=== PATIENT | male | born 1950 | race Caucasian/White ===

== ENCOUNTER → 2018-04-24 | Outpatient (CLI) | payer OTHER ==
--- NOTE | 2018-04-27 17:25 | SLE ---
[facility] [place] [address] POLYSOMNOGRAPHY STUDY Name: GABY MAK Room #: REG [facility]#: [id number] Admission: 04/24/18 ������������������ Attend Phys: Gildardo Michelle MD Discharge: ������������������ Date of : 48 Report #: [id number] THIS REPORT FOR: //name// CC: Gildardo Handy MD LOCATED WITHIN [facility] DATE OF SERVICE: 04/24/2018 ATTENDING PHYSICIAN: Robbi Handy MD, LOCATED WITHIN [facility] The patient is a 67-year-old who weighs 235 pounds with a BMI of 32.8. The patient's Fishtail score was 9. The patient underwent a sleep study performed by [facility]. This was a diagnostic study. During the night study, the patient spent 378 minutes in bed and slept for 287 minutes with a sleep efficiency of 76%. Sleep latency was 15.3 minutes with a REM latency of 71.8 minutes. Overall sleep architecture showed increased stage 1 sleep, normal stage 2 sleep, absent N3 sleep and reduced REM sleep, which was 6% of the total sleep time. During the night study, the patient had 38 apneas, 36 obstructive and 2 central, and 111 hypopneas. The patient's apnea-hypopnea index was 31 per hour, REM index of 40 per hour and a supine index of 46 per hour. EKG monitoring revealed an average heart rate of 59 beats per minute. No sustained arrhythmias observed. PLMS were seen at an index of 65 per hour and 12 per hour caused EEG arousals. Nocturnal oximetry study during the night of study showed an average oxygen saturation of 92%, the lowest was 77%. 23 minutes were spent at oxygen saturation less than 89%. The patient did meet the criteria for CPAP initiation, but it was late in the night of the study, as a result CPAP could not be initiated. IMPRESSION: 1. Severe sleep apnea-hypopnea syndrome at an apnea-hypopnea index of 31 per hour with a REM apnea-hypopnea index of 40 per hour. 2. Nocturnal hypoxia secondary to obstructive sleep apnea. 3. Severe periodic limb movements of sleep. RECOMMENDATIONS: 1. The patient should return to the sleep lab for CPAP titration study. 2. Once optimum CPAP pressure is achieved, then follow up in 4-[address] [address] POLYSOMNOGRAPHY STUDY Name: GABY MAK [id number] Admission: 04/24/18 ������������������ Attend Phys: Gildardo Michelle MD Discharge: ������������������ Date of : 48 Report #: [id number] assess compliance with CPAP and to document clinical improvement. 3. Weight loss is advised. 4. Avoid PAPER MACHINE OPERATOR depressants. 5. Cautioned regarding driving until symptoms of sleep apnea have resolved with the use of CPAP. 6. The patient should also be further evaluated for symptoms of restless legs during the day and if present it can be treated with dopaminergic agonist agent. ��������������������������������������������� <ELECTRONICALLY SIGNED> ���������������������������������������� By: Gildardo Michelle MD ��������������������������������������������� 04/27/18 1725 1528 1541 Gildardo Michelle MD /nt
== END ==
LOC: SLEEPLAB 10:01
DX: G47.33 Obstructive sleep apnea (adult) (pediatric) (principal); G47.61 Periodic limb movement disorder; R09.02 Hypoxemia; R06.83 Snoring; R40.0 Somnolence

== ENCOUNTER → 2018-07-31 | Outpatient (CLI) | payer OTHER ==
--- NOTE | 2018-08-04 08:56 | SLE ---
[facility] [place] [address] POLYSOMNOGRAPHY STUDY Name: GABY MAK Room #: REG [facility]#: [id number] Admission: 07/31/18 ������������������ Attend Phys: Gildardo Michelle MD Discharge: ������������������ Date of : 48 Report #: [id number] THIS REPORT FOR: //name// CC: Gildardo Guerra DATE OF SERVICE: 07/31/2018 ATTENDING PHYSICIAN: Dr. Reese Guerra. The patient is 67 years old who weighs 237 pounds with a BMI of 33.1. The patient was found to have severe sleep apnea by home sleep study performed in April of this year. The patient was referred back for CPAP titration study. During the night study, the patient spent 535 minutes in bed and slept for 402 minutes with a sleep efficiency of 75%. Sleep latency was 54 minutes with a REM latency of 244 minutes. Overall, sleep architecture showed increased stage 1 and stage 2 sleep, absent slow wave and reduced REM sleep, which was only 6.5% of the total sleep time. EKG monitoring revealed an average heart rate of 57 beats per minute. Occasional PVC seen. No sustained arrhythmias observed. PLMS were seen at an index of 22 per hour and 6 per hour caused EEG arousals. The patient was started on CPAP at 8 cm of water and titrated up to 14 cm of water. At the final pressure, the patient slept for 91 minutes. The patient had supine as well as 13 minutes of REM sleep observed. The patient's AHI was reduced to 0.7 per hour and oxygen saturation remained above 91%. IMPRESSION: 1. Severe sleep apnea-hypopnea syndrome diagnosed by home sleep study. 2. Moderate periodic limb movements of sleep. RECOMMENDATIONS: 1. CPAP at 14 cm of water completely eliminated the patient's sleep apnea and should be used on a nightly basis. 2. Follow up in 4-6 weeks to assess compliance with CPAP and to document clinical improvement. 3. Weight loss is strongly advised. 4. Avoid COATER BRAKE LININGS depressants. 5. Cautioned regarding driving and operating heavy machinery until the patient's sleep apnea is resolved with the use of CPAP. [facility] [address] [place] [address] POLYSOMNOGRAPHY STUDY Name: GABY MAK Lily Room #: REG [facility]#: [id number] Admission: 07/31/18 ������������������ Attend Phys: Gildardo Michelle MD Discharge: ������������������ Date of : 48 Report #: [id number] 6. PLMS does not need to be treated unless the patient has symptoms of restless legs during the day. ��������������������������������������������� <ELECTRONICALLY SIGNED> ���������������������������������������� By: Gildardo Michelle MD ��������������������������������������������� 08/04/18 0856 1753 1803 Gildardo Michelle MD /nt
== END ==
LOC: SLEEPLAB 11:33
DX: G47.33 Obstructive sleep apnea (adult) (pediatric) (principal); G47.34 Idiopathic sleep related nonobstructive alveolar hypoventilation

== ENCOUNTER → 2019-07-30 | Outpatient (CLI) | payer OTHER | LOC: SJCVC 11:17 | PROVIDERS: ATTEND Internal Medicine | DX: I10 Essential (primary) hypertension (principal); E78.5 Hyperlipidemia, unspecified; G47.33 Obstructive sleep apnea (adult) (pediatric) ==

== ENCOUNTER → 2020-01-28 | Outpatient (CLI) | payer OTHER | LOC: SJCVC 13:45 | PROVIDERS: ATTEND Internal Medicine | DX: R94.31 Abnormal electrocardiogram [ECG] [EKG] (principal); I10 Essential (primary) hypertension; E78.5 Hyperlipidemia, unspecified; G47.33 Obstructive sleep apnea (adult) (pediatric); R06.00 Dyspnea, unspecified; M19.90 Unspecified osteoarthritis, unspecified site; Z72.89 Other problems related to lifestyle; Z79.899 Other long term (current) drug therapy; Z88.8 Allergy status to other drugs, medicaments and biological substances ==

== ENCOUNTER → 2021-01-27 | Outpatient (CLI) | payer OTHER | LOC: SJCVCIMAG 09:37 → SJCVC 14:03 | PROVIDERS: ATTEND Internal Medicine | DX: R00.0 Tachycardia, unspecified (principal); R94.31 Abnormal electrocardiogram [ECG] [EKG]; R06.00 Dyspnea, unspecified; I10 Essential (primary) hypertension; E78.5 Hyperlipidemia, unspecified; G47.33 Obstructive sleep apnea (adult) (pediatric); R59.1 Generalized enlarged lymph nodes; M54.16 Radiculopathy, lumbar region; M19.90 Unspecified osteoarthritis, unspecified site; M72.2 Plantar fascial fibromatosis; Z72.89 Other problems related to lifestyle; Z79.899 Other long term (current) drug therapy; Z91.09 Other allergy status, other than to drugs and biological substances; Z88.5 Allergy status to narcotic agent; Z88.8 Allergy status to other drugs, medicaments and biological substances ==